=== PATIENT | male | born 1995 | race Asian ===

== ENCOUNTER 2019-07-21 18:31 | Emergency (ER) | payer OTHER ==
[2019-07-21 18:55] LABS: ABS Lymphocytes 0.4 10^3/ul (1.0-4.8); ABS Monocytes 0.2 10^3/ul (0-0.8); ABS Neutrophils 11.3 10^3/ul (1.5-7.7); Eosinophil % 0.1 %; Hematocrit 42 % (42-52); Hemoglobin 14.4 g/dL (14.0-18.0); Lymphocyte % 3.5 %; Mean Corpuscular HGB Conc 35 g/dL (31-36); Mean Corpuscular Hemoglobin 33 pg (27-31); Mean Corpuscular Volume 96 fL (80-94); Mean Platelet Volume 8.6 fL (7.4-10.4); Platelet Count 213 10^3/uL (150-450); Red Blood Count 4.33 10^6 /uL (4.18-5.48); Red Cell Distribution Width 13 % (10-15); White Blood Count 11.9 10^3/uL (3.5-10.8)
[2019-07-21 19:12] LABS: ALT 14 U/L (7-52); AST 17 U/L (13-39); Albumin/Globulin Ratio 1.8 (1-3); Alkaline Phosphatase 48 U/L (34-104); Anion Gap 7 mmol/L (2-11); BUN/Creatinine Ratio 20.6 (8-20); Blood Urea Nitrogen 20 mg/dL (6-24); C Reactive Protein < 1.00 mg/L (<8.01); CO2 Carbon Dioxide 31 mmol/L (22-32); Calcium 10.2 mg/dL (8.6-10.3); Chloride 102 mmol/L (101-111); EGFR African American 115.1 (>60); EGFR Non-African American 95.1 (>60); Globulin 2.8 g/dL (2-4); Glucose 146 mg/dL (70-100); Sodium 140 mmol/L (135-145); Total Protein 7.8 g/dL (6.4-8.9)
--- NOTE | 2019-07-21 20:24 | ED ---
Abdominal Pain/Male - HPI Summary HPI Summary: 24 y/o M presents to [facility] c/o 7/10 L flank pain starting yesterday. Worse today. Went to [facility] today and was told about microscopic blood in urine. He denies fever. Symptoms aggravated by nothing. Symptoms alleviated by nothing. No hx kidney problems. No FHx kidney stones. - History of Current Complaint Chief Complaint: EDFlankPain Stated Complaint: BACK PAIN PER PT Time Seen by Provider: 07/21/19 20:09 Hx Obtained From: Patient Onset/Duration: Lasting Days - 1, Still Present Timing: Constant Severity Currently: Moderate Pain Intensity: 7 Pain Scale Used: 0-10 Numeric Location: Flank - L Aggravating Factor(s): Nothing Alleviating Factor(s): Nothing Associated Signs And Symptoms: Positive: Negative - fever, Other - hematuria - Allergies/Home Medications Allergies/Adverse Reactions: Allergies Allergy/AdvReac Type Severity Reaction Status Date / Time No Known Allergies Allergy Verified 07/21/19 18:37 Home Medications: Home Medications oxyCODONE/Acetamin 5/325 MG* [Percocet 5/325 TAB*] 1 tab PO Q6H PRN 3 Days #12 tab MDD 4 07/21/19 [Rx] PMH/Surg Hx/FS Hx/Imm Hx Endocrine/Hematology History: Denies: Hx Diabetes Cardiovascular History: Denies: Hx Hypertension History: Denies: Hx Kidney Stones - Surgical History Surgical History: None Infectious Disease History: No Infectious Disease History: Denies: Traveled Outside the [place] in Last 30 Days - Family History Known Family History: Positive: Other - NEG: Kidney stones - Social History Substance Use Type: Reports: None Hx Tobacco Use: No Smoking Status (MU): Never Smoked Tobacco Review of Systems Negative: Fever Positive: flank pain - L, hematuria All Other Systems Reviewed And Are Negative: Yes Physical Exam - Summary Physical Exam Summary: Constitutional: Well-developed, Well-nourished, Alert. (-) Distressed Skin: Warm, Dry HENT: Normocephalic; Atraumatic Eyes: Conjunctiva normal Neck: Musculoskeletal ROM normal neck. (-) JVD, (-) Stridor, (-) Nuchal rigidity Cardio: Rhythm regular, rate normal, Heart sounds normal; Intact distal pulses; Radial pulses are 2+ and symmetric. (-) Murmur Pulmonary/Chest wall: Effort normal. (-) Respiratory distress, (-) Wheezes, (-) Rales Abd: Soft, left flank tenderness, (-) Distension, (-) Guarding, (-) Rebound Musculoskeletal: (-) Edema Lymph: (-) Cervical adenopathy Neuro: Alert, Oriented x3 Psych: Mood and affect Normal Triage Information Reviewed: Yes Vital Signs On Initial Exam: Initial Vitals Temp Pulse Resp BP Pulse Ox 98.4 F 78 14 126/91 100 07/21/19 18:33 07/21/19 18:33 07/21/19 18:33 07/21/19 18:33 07/21/19 18:33 Vital Signs Reviewed: Yes Procedures - Sedation Patient Received Moderate/Deep Sedation with Procedure: No Diagnostics - Vital Signs Vital Signs Temp Pulse Resp BP Pulse Ox 07/21/19 18:33 98.4 F 78 14 126/91 100 - Laboratory Lab Results: Lab Results 07/21/19 07/21/19 Range/Units 18:48 18:48 WBC 11.9 H (3.5-10.8) 10^3/uL RBC 4.33 (4.18-5.48) 10^6 /uL Hgb 14.4 (14.0-18.0) g/dL Hct 42 (42-52) % MCV 96 H (80-94) fL MCH 33 H (27-31) pg MCHC 35 (31-36) g/dL RDW 13 (10-15) % Plt Count 213 (150-450) 10^3/uL MPV 8.6 (7.4-10.4) fL Neut % (Auto) 94.5 % Lymph % (Auto) 3.5 % [place] % (Auto) 1.8 % Eos % (Auto) 0.1 % Baso % (Auto) 0.1 % Absolute Neuts (auto) 11.3 H (1.5-7.7) 10^3/ul Absolute Lymphs (auto) 0.4 L (1.0-4.8) 10^3/ul Absolute Monos (auto) 0.2 (0-0.8) 10^3/ul Absolute Eos (auto) 0.0 (0-0.6) 10^3/ul Absolute Basos (auto) 0.0 (0-0.2) 10^3/ul Absolute Nucleated RBC 0.0 10^3/ul Nucleated RBC % 0.0 Sodium 140 (135-145) mmol/L Potassium 4.0 (3.5-5.0) mmol/L Chloride 102 (101-111) mmol/L Carbon Dioxide 31 (22-32) mmol/L Anion Gap 7 (2-11) mmol/L BUN 20 (6-24) mg/dL Creatinine 0.97 (0.67-1.17) mg/dL Est GFR ( Amer) 115.1 (>60) Est GFR (Non-Af Amer) 95.1 (>60) BUN/Creatinine Ratio 20.6 H (8-20) Glucose 146 H (70-100) mg/dL Calcium 10.2 (8.6-10.3) mg/dL Total Bilirubin 0.80 (0.2-1.0) mg/dL AST 17 (13-39) U/L ALT 14 (7-52) U/L Alkaline Phosphatase 48 (34-104) U/L C-Reactive Protein < 1.00 (<8.01) mg/L Total Protein 7.8 (6.4-8.9) g/dL Albumin 5.0 (3.2-5.2) g/dL Globulin 2.8 (2-4) g/dL Albumin/Globulin Ratio 1.8 (1-3) Result Diagrams: 07/21/19 18:48 07/21/19 18:48 Lab Statement: Any lab studies that have been ordered have been reviewed, and results considered in the medical decision making process. - CT ABD/PEL CT Interpretation Completed By: Radiologist - IMPRESSION: There is a 2.5 mm calculus in the terminal left ureter with mild left obstructive uropathy. There is additional nonobstructive left nephrolithiasis. ED physician has reviewed this imaging report. Abdominal Pain Male Course/Dx - Course Course Of Treatment: 24 y/o male p/w L flank pain found to have 2 mm mildly obstructing kidney stone. Urine w/o infection, given pain control advised to strain urine. Return for worsening symptoms. - Diagnoses Provider Diagnoses: Kidney stone Discharge ED - Sign-Out/Discharge Documenting (check all that apply): Patient Departure - Discharge Plan Condition: Stable Disposition: HOME Prescriptions: oxyCODONE/Acetamin 5/325 MG* [Percocet 5/325 TAB*] 1 tab PO Q6H PRN 3 Days #12 tab MDD 4 PRN Reason: Pain Patient Education Materials: Kidney Stones (ED) Referrals: [facility] [Outside] Additional Instructions: You were seen in the emergency department for a kidney stone. Please take Percocet for severe pain. Please drink lots of fluids. Please a strainer to ensure you pass the stone. Please follow up with your primary care doctor in next 2-3 days and return to emergency department for worsening pain, fevers, decreased urine output, or concerning symptoms. It was a pleasure taking care of you today. - Billing Disposition and Condition Condition: STABLE Disposition: Home - Attestation Statements Document Initiated by Candiceibkarissa: Yes Documenting Scribe: Anupama Franklin Provider For Whom Digna is Documenting (Include Credential): Chris Pérez MD Scribe Attestation: Anupama Marc, scribed for Chris Pérez MD on 07/24/19 at 0704. Scribe Documentation Reviewed: Yes Provider Attestation: The documentation as recorded by the Anupama jain accurately reflects the service I personally performed and the decisions made by , Chris Pérez MD Status of Scribe Document: Viewed
[2019-07-21 20:52] LABS: Urine Appearance Cloudy; Urine Bilirubin Negative (Negative); Urine Blood Negative (Negative); Urine Color Yellow; Urine Glucose 1+(50 mg/dL) (Negative); Urine Ketones 1+ (Negative); Urine Nitrite Negative (Negative); Urine Protein Negative (Negative); Urine Specific Gravity 1.013 (1.010-1.030); Urine Urobilinogen Positive (Negative)
[2019-07-21 21:47] VITALS: BP 130/78
== END 2019-07-21 21:42 | disposition home or self-care (01) ==
LOC: ED 18:31
DX: N20.0 Calculus of kidney (principal); R10.84 Generalized abdominal pain; R31.9 Hematuria, unspecified
CPT/HCPCS: 36415; 74176; 80053; 81003; 85025; 86140; 99282